=== PATIENT | male | born 1995 | race Caucasian/White ===

== ENCOUNTER 2018-03-10 15:35 | Emergency (ER) | payer OTHER ==
[2018-03-10 16:04] VITALS: BP 115/78
--- NOTE | 2018-03-10 16:10 | UC ---
General HPI - HPI Summary HPI Summary: HEAD COLD FOR PAST FEW DAYS. L EYE WITH DRAINAGE, RED. NO CONTACT USE. R EYE STARTING TO TURN RED. - History of Current Complaint Chief Complaint: Carisa Stated Complaint: LEFT EYE COMPALINT Time Seen by Provider: 03/10/18 15:57 Hx Obtained From: Patient Onset/Duration: Gradual Onset Timing: Constant Pain Intensity: 0 Associated Signs & Symptoms: Negative: Fever, Headache - Allergy/Home Medications Allergies/Adverse Reactions: Allergies Allergy/AdvReac Type Severity Reaction Status Date / Time No Known Allergies Allergy Verified 03/10/18 15:55 PMH/Surg Hx/FS Hx/Imm Hx Previously Healthy: Yes - Surgical History Surgical History: None - Family History Known Family History: Positive: None - Social History Occupation: Student Lives: Dormitory/Roommates Alcohol Use: Occasionally Substance Use Type: None Smoking Status (MU): Never Smoked Tobacco - Immunization History Vaccination Up to Date: Yes Review of Systems Constitutional: Negative Skin: Negative Eyes: Drainage, Eye Redness ENT: Negative Respiratory: Negative Cardiovascular: Negative Gastrointestinal: Negative Genitourinary: Negative Motor: Negative Neurovascular: Negative Musculoskeletal: Negative Neurological: Negative Psychological: Negative Is Patient Immunocompromised?: No All Other Systems Reviewed And Are Negative: Yes Physical Exam Triage Information Reviewed: Yes Appearance: Well-Appearing Vital Signs: Initial Vital Signs Temp 98.8 F 03/10/18 15:56 Pulse 97 03/10/18 15:56 Resp 18 03/10/18 15:56 BP 115/78 03/10/18 15:56 Pulse Ox 98 03/10/18 15:56 Eyes: Positive: Conjunctiva Inflamed - BOTH EYES., Other: - CRUSTING BOTH EYES. NO PERIORBITAL EDEMA OR RASH. NO AURICULAR ADENOPATHY. ENT: Positive: Pharynx normal, Nasal congestion, TMs normal. Negative: Nasal drainage Neck: Positive: Supple, Nontender, No Lymphadenopathy Respiratory: Positive: Lungs clear, Normal breath sounds Cardiovascular: Positive: RRR, Pulses Normal Abdomen Description: Positive: Nontender, No Organomegaly, Soft Bowel Sounds: Positive: Present Musculoskeletal: Positive: ROM Intact Neurological: Positive: Alert Psychological: Positive: Age Appropriate Behavior Skin Exam: Normal Course/Dx - Differential Dx - Multi-Symptom Provider Diagnoses: URI, CONJUNCTIVITIS Discharge - Sign-Out/Discharge Documenting (check all that apply): Patient Departure All imaging exams completed and their final reports reviewed: No Studies - Discharge Plan Condition: Stable Disposition: HOME Prescriptions: Polymyx/Trimethoprim OPTH* [Polytrim OPHTH*] 4 drop BOTH EYES Q3H 7 Days #1 btl Patient Education Materials: Upper Respiratory Infection (DC), Conjunctivitis ( ED) Referrals: [facility] [Outside] Additional Instructions: FOLLOW UP IF NOT BETTER IN 5-7 DAYS OR SOONER IF WORSE. - Billing Disposition and Condition Condition: STABLE Disposition: Home
== END 2018-03-10 16:15 | disposition home or self-care (01) ==
LOC: UCCORT 15:35
DX: J06.9 Acute upper respiratory infection, unspecified (principal); H10.9 Unspecified conjunctivitis
CPT/HCPCS: 99202; G0463